=== PATIENT | female | born 1970 | race Caucasian/White ===

== ENCOUNTER 2019-06-06 07:26 | Day surgery (SDC) | payer OTHER ==
[~2019-06-06] VITALS: Ht 154.9 cm; Wt 102.1 kg
--- NOTE | ~2019-06-06 | OR ---
[facility] [address], [place] [address] Draft DATE OF OPERATION: 06/06/2019 SURGEON: Ryan Franz MD PREOPERATIVE DIAGNOSIS: Screening. POSTOPERATIVE DIAGNOSIS: Unremarkable colonoscopy. PROCEDURE: Colonoscopy without biopsy. ESTIMATED BLOOD LOSS: None. INDICATIONS: Macrina is a 49-year-old female, asked to see me for her initial screening colonoscopy. Of course, she has no lower GI complaints. There is no family history of colon cancer or polyps. I gave her a pamphlet on colonoscopy in the office. We reviewed that together along with the risks including, but not limited to gas, bloating, crampy abdominal pain, bleeding, perforation requiring surgery, and missed diagnosis. We also reviewed the need for IV conscious sedation. She had expressed understanding and wished to proceed. PROCEDURE NOTE: Macrina was taken into our endoscopy suite and placed in the left lateral decubitus position. She was given a total of 7 mg of Versed and 125 mcg of fentanyl to cover the case. A digital rectal exam was performed and this was unremarkable. The adult colonoscope was introduced and advanced under direct visualization of the camera all the way into the cecum without difficulty. Her prep was good. The scope was slowly withdrawn. We could easily see the appendiceal orifice and the ileocecal valve. We took several pictures throughout for photodocumentation. No other pathology noted. There was no diverticulosis. There were no polyps. Upon retroflexion of the scope in the rectum, there was no additional pathology noted above the anal canal. After this, the gas was suctioned out and the colonoscope removed. Macrina tolerated the procedure quite well. RECOMMENDATIONS: Macrina can return in 10 years for repeat colonoscopy. PATIENT NAME: MACRINA FRANCIS OPERATIVE REPORT DATE OF : 66 REPORT #: [id number] PHYSICIAN: RYAN FRANZ MD PCP: NO PRIMARY CARE PHYSICIAN REPORT IS CONFIDENTIAL AND NOT TO BE RELEASED WITHOUT AUTHORIZATION [address] [address] Draft MD CED Day/RACHEALL /[id number] cc: MD Amber Day MD Copies: RYAN FRANZ MD ~ PATIENT NAME: MACRINA FRANCIS OPERATIVE REPORT DATE OF : 66 REPORT #: [id number] PHYSICIAN: RYAN FRANZ MD PCP: NO PRIMARY CARE PHYSICIAN REPORT IS CONFIDENTIAL AND NOT TO BE RELEASED WITHOUT AUTHORIZATION
[~2019-06-06 07:26] MED LIST: DIALYVITE 800-1 EAC1 PO; EFFEXOR XR75 MG PO
[2019-06-06] MEDS ORDERED: MOTRIN IB200 MG PO (07:51)
--- NOTE | 2019-06-06 09:30 | NUR ---
06/06/19 0936 Marlin,Leyda 5285 PT ARRIVED TO PACU ON 3L VIA NC, PT WOKE TO TACTILE STIMULI AND DENIES PAIN AND NAUSEA. PT REORIENTED TO PACU, PT BACK TO SLEEP. RESP EVEN AND UNLABORED.
== END 2019-06-06 09:52 | disposition home or self-care (01) ==
LOC: OPS 07:26 → DS 07:26 → OPS 09:00
PROVIDERS: Colon & Rectal Surgery
PROC: 0DJD8ZZ Inspection of Lower Intestinal Tract, Via Natural or Artificial Opening Endoscopic (ICD-10-PCS; principal; 2019-06-06 09:00)
DX: Z12.11 Encounter for screening for malignant neoplasm of colon (principal); I10 Essential (primary) hypertension; E11.9 Type 2 diabetes mellitus without complications; G20 Parkinson's disease; Z79.899 Other long term (current) drug therapy
CPT/HCPCS: 99153; G0500; J2250; J3010; J7120